=== PATIENT | male | born 2000 | race African-American/Black ===

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

== ENCOUNTER 2020-02-05 15:49 | Emergency (ER) | payer SELFPAY ==
[~2020-02-05] VITALS: Ht 180.3 cm; Wt 83.3 kg
[~2020-02-05 15:49] MED LIST changes: +VALA10007 PO
[2020-02-05] MEDS ORDERED: IBUP-1780 PO (16:33)
--- NOTE | 2020-02-05 16:33 | ED Upper Extremity ---
General Chief Complaint: Upper Extremity Stated Complaint: RT SHOULDER/COLLARBONE PAIN Source: patient History of Present Illness Date Seen by Provider: Feb 05, 2020 Time Seen by Provider: 16:20 Initial Comments Patient presents with right shoulder pain for the past 2 days. Seen in urgent care yesterday and had x-rays done, was given a sling and also an orthopedic follow-up which is scheduled for tomorrow. Presents today because of continued pain. Patient states he injured his shoulder 3 weeks ago when getting out of his car, he hit his right shoulder in the doorway while getting up. States he didn't villatoro ve any pain until 2 days ago. He was able to do normal daily activity including weight lifting and exercise without any limitation or pain. He denies any new injury or trauma that would have elicited the pain which began 2 days ago. Patient states he had shoulder surgery in 2018 of his right shoulder, he believes it was rotator cuff surgery although is not sure. Allergies and Home Medications Allergies Coded Allergies: No Known Drug Allergies (Unverified , 06/24/19) Home Medications Ibuprofen 800 Mg Tablet, 800 MG PO Q8H PRN for PAIN Prescribed by: DIANA WHEELER on 02/05/20 1633 Ondansetron 4 Mg Tab.rapdis, 4 MG PO Q6H PRN for NAUSEA/VOMITING Prescribed by: HOSSEIN MUHAMMAD on 06/24/19 1901 Valacyclovir HCl 1,000 Mg Tablet, 1,000 MG PO BID Prescribed by: MILKA ROME on 07/01/19 1735 Patient Home Medication List Home Medication List Reviewed: Yes Review of Systems Constitutional: no symptoms reported; No dizziness, No fever, No malaise Respiratory: No cough, No dyspnea on exertion Cardiovascular: No chest pain, No edema Musculoskeletal: joint pain (R shoulder only), muscle pain; No neck pain Past Gbrmzmh-Avumsw-Yexpow Hx Past Med/Social Hx: Reviewed Nursing Past Med/Soc Hx Patient Social History Drug of Choice: MARIJUANA 2nd Hand Smoke Exposure: No Recent Foreign Travel: No Contact w/Someone Who Travel: No Recent Hopitalizations: No Seasonal Allergies Seasonal Allergies: No Past Medical History Surgeries: Yes (RIGHT SHOULDER) Respiratory: Yes Asthma Cardiac: No Neurological: No Genitourinary: No Gastrointestinal: No Musculoskeletal: No Endocrine: No HEENT: No Cancer: No Psychosocial: No Integumentary: No Blood Disorders: No Physical Exam Vital Signs Capillary Refill : Height, Weight, BMI Height: '" Weight: lbs. oz. kg; 23.00 BMI Method: General Appearance: WD/WN, no apparent distress Neck: non-tender, full range of motion, supple Back: normal inspection, no CVA tenderness, no vertebral tenderness Shoulder: normal inspection, no evidence of injury; No asymmetry, No bone tenderness, No deformity, No ecchymosis; limited ROM (R shoulder limited flex, abduction 2 to pain), soft tissue tenderness; No swelling Elbow/Forearm: normal inspection, non-tender, no evidence of injury, normal ROM Wrist: Yes normal inspection, Yes non-tender, Yes no evidence of injury, Yes normal ROM Neurologic/Tendon: normal sensation, normal motor functions, normal tendon functions Skin: normal color, warm/dry Departure Impression Primary Impression: Shoulder pain, right Qualified Codes: M25.511 - Pain in right shoulder Disposition: 01 HOME, SELF-CARE Condition: Stable Departure-Patient Inst. Decision time for Depature: 16:31 Referrals: NO,LOCAL PHYSICIAN (PCP/Family) Primary Care Physician Patient Instructions: Shoulder Pain (DC) Add. Discharge Instructions: Keep your appointment to see Ortho here in [place] TOMORROW as previously scheduled. Ice your shoulder every 2 hours for 15 minutes. Avoid lifting and overhead activity. Wear a sling only for comfort. All discharge instructions reviewed with patient and/or family. Voiced understanding. Scripts Ibuprofen (Ibuprofen) 800 Mg Tablet 800 MG PO Q8H PRN for PAIN, #30 TAB 0 Refills Prov: DIANA WHEELER DO 02/05/20 DIANA WHEELER DO Feb 05, 2020 16:33
== END 2020-02-05 16:40 | disposition home or self-care (01) ==
LOC: EDUNIT# 15:49 → ER FS 15:51
DX: M25.511 Pain in right shoulder (principal); W22.8XXA Striking against or struck by other objects, initial encounter; Y92.810 Car as the place of occurrence of the external cause
CPT/HCPCS: 99282

== ENCOUNTER → 2020-02-06 | Outpatient (CLI) | payer SELFPAY ==
[~2020-02-06] MED LIST changes: +IBUP-1780 PO
--- NOTE | 2020-02-06 11:45 | Diagnostic Imaging Report ---
EXAMINATION: Right shoulder at 1054h. INDICATION: Shoulder pain 4 views were obtained. There are no prior studies available for comparison. There is no fracture, dislocation or acute bony abnormality evident. The glenohumeral and acromioclavicular joints are fairly well-maintained. There may be slight widening of the acromioclavicular joint however. If there is clinical concern regarding a mild acromioclavicular separation, then a comparison view of the left shoulder should be considered. The soft tissues are unremarkable. IMPRESSION: 1. There is no evidence for an acute bony abnormality. 2. The slight widening of the acromioclavicular joint may be a developmental variant. The possibility that there is a mild acromioclavicular separation should also be considered. Recommendations as above. Dictated by: Dictated on workstation # [id number]
== END ==
LOC: RAD FS 10:49
PROVIDERS: ATTEND Nurse Practitioner
DX: S40.011A Contusion of right shoulder, initial encounter (principal); X58.XXXA Exposure to other specified factors, initial encounter
CPT/HCPCS: 73030

== ENCOUNTER 2020-02-07 00:57 | Emergency (ER) | payer SELFPAY ==
[2020-02-07] MEDS ORDERED: HYDROcodone/APAP 5 MG/325 MG (LORTAB) TAB PO ONE (01:15)
--- NOTE | 2020-02-07 01:36 | ED Upper Extremity ---
General Chief Complaint: Upper Extremity Stated Complaint: RIGHT SHOULDER PAIN Nursing Triage Note: Pt complaining of right shoulder pain Source: patient History of Present Illness Date Seen by Provider: Feb 07, 2020 Time Seen by Provider: 01:15 Initial Comments Patient is a 19-year-old -[place] right-handed male presents with persistent right shoulder pain for the past 3 days after injuring his shoulder. Patient's been evaluated at an urgent care at this facility and by his sports medicine physician and diagnosed with a right before meals sprain. Patient is warned sling for the past 2 days but was instructed now migratory restring today. Reports increased right arm pain and swelling over the past 24 hours. Reports pain with right shoulder range of motion. He is been taking ibuprofen with limited relief. No other acute symptoms or complaints. Onset: other Pain/Injury Location: right shoulder Method of Injury: sports injury Modifying Factors: Improves With Other Allergies and Home Medications Allergies Coded Allergies: No Known Drug Allergies (Unverified , 06/24/19) Home Medications Ibuprofen 800 Mg Tablet, 800 MG PO Q8H PRN for PAIN Prescribed by: DIANA WHEELER on 02/05/20 1633 Patient Home Medication List Home Medication List Reviewed: Yes Review of Systems Constitutional: no symptoms reported EENTM: no symptoms reported Respiratory: no symptoms reported Cardiovascular: no symptoms reported Gastrointestinal: no symptoms reported Musculoskeletal: joint pain Past Piqlcyh-Svzcnx-Susfuz Hx Past Med/Social Hx: Reviewed Nursing Past Med/Soc Hx Patient Social History Alcohol Use: Denies Use Recreational Drug Use: Yes Drug of Choice: MARIJUANA 2nd Hand Smoke Exposure: No Recent Foreign Travel: No Contact w/Someone Who Travel: No Recent Infectious Disease Expo: No Recent Hopitalizations: No Physical Abuse: No Sexual Abuse: No Immunizations Up To Date Tetanus Booster (TDap): Unknown Seasonal Allergies Seasonal Allergies: No Past Medical History Surgeries: Yes (RIGHT SHOULDER "ROTATOR CUFF") Respiratory: Yes Asthma Cardiac: No Neurological: No Genitourinary: No Gastrointestinal: No Musculoskeletal: No Endocrine: No HEENT: No Cancer: No Psychosocial: No Integumentary: No Blood Disorders: No Physical Exam Vital Signs Vital Signs - First Documented 02/07/20 01:05 Temp 36.1 Pulse 88 Resp 16 B/P (MAP) 121/79 Pulse Ox 96 O2 Delivery Room Air Capillary Refill : Height, Weight, BMI Height: '" Weight: lbs. oz. kg; 25.00 BMI Method: General Appearance: WD/WN, no apparent distress, other HEENT: PERRL/EOMI, normal ENT inspection Neck: full range of motion Cardiovascular: regular rate, rhythm Respiratory: lungs clear Gastrointestinal: non tender, soft Back: normal inspection Shoulder: bone tenderness (R AC joing), limited ROM (R shoulder), pain, swelling (R arm edema, radial pulses 2 + and symmetric. No arm/forearm tenderness) Elbow/Forearm: normal inspection Wrist: Yes normal inspection Hand: normal inspection Neurologic/Tendon: normal sensation Neurologic/Psychiatric: no motor/sensory deficits Skin: normal color Progress/Results/Core Measures Results/Orders My Orders Orders - JUANCARLOS RUCKER DO Hydrocodone/Apap 5/325 Tablet (Lortab 5 (02/07/20 01:15) Medications Given in ED Current Medications Medications Dose Ordered Sig/Alon Route Start Time Stop Time Status Last Admin Dose Admin Acetaminophen/ Hydrocodone Bitart 2 tab ONCE ONCE PO 02/07/20 01:15 02/07/20 01:16 DC 02/07/20 01:17 2 TAB Vital Signs/I&O 02/07/20 01:05 Temp 36.1 Pulse 88 Resp 16 B/P (MAP) 121/79 Pulse Ox 96 O2 Delivery Room Air Departure Communication (Admissions) Persistent right shoulder pain from previous injury with new right arm swelling with dependent edema secondary to discontinuance arm sling and right arm use. Pain address. Will place and sling with instructions to follow up with sports medicine doctor in 3 days. Return precautions reviewed. Impression Primary Impression: Right shoulder injury Additional Impression: Dependent edema Disposition: HOME, SELF-CARE Condition: Stable Departure-Patient Inst. Referrals: NO,LOCAL PHYSICIAN (PCP/Family) Primary Care Physician Add. Discharge Instructions: Please continue Motrin for pain and wear a right arm sling. Follow-up with your team physician later today or on Monday. All discharge instructions reviewed with patient and/or family. Voiced understanding. JUANCARLOS RUCKER DO Feb 07, 2020 01:36
== END 2020-02-07 01:45 | disposition home or self-care (01) ==
LOC: EDUNIT# 00:57 → ER FS 01:01
DX: S49.81XA Other specified injuries of right shoulder and upper arm, initial encounter (principal); R60.9 Edema, unspecified; Y93.79 Activity, other specified sports and athletics
CPT/HCPCS: 99282; A4565

== ENCOUNTER 2020-02-19 04:16 | Emergency (ER) | payer MEDICAID, OTHER ==
[~2020-02-19] VITALS: Ht 177.8 cm; Wt 79.4 kg
[2020-02-19] MEDS ORDERED: RT-ALBUTEROL/IPRATROPIUM 3 ML (DUONEB) VIAL ONE (04:18)
[2020-02-19] MEDS ORDERED: NS IV 1000 ML 1,000 ML IV SCH ×2 (04:45→05:15)
[2020-02-19] MEDS ORDERED: methylPREDNISolone 125 MG (Solu-MEDROL) VIAL IVP ONE (04:45)
[2020-02-19] MEDS ORDERED: TERBUTALINE INJ 1 MG/ML (BRETHINE) AMP SC ONE (04:45)
--- NOTE | 2020-02-19 04:45 | ED Respiratory ---
General Chief Complaint: Respiratory Problems Stated Complaint: SOB Nursing Triage Note: pt with hx of asthma, co of soa, has used inhaler x 3 this am, states occasional cough with yellow sputum Source: patient Exam Limitations: no limitations (FRED CHRISTIE DO) History of Present Illness Date Seen by Provider: Feb 19, 2020 Time Seen by Provider: 04:25 Initial Comments The patient is a pleasant 19-year-old male who presents for evaluation of shortness of breath and wheezing which started early this morning. He reports a history of asthma and states that this feels like an asthma exacerbation. He says that he has had an occasional cough with some yellow sputum. He denies fevers or chills, loss of taste or smell, chest pain, hemoptysis, diarrhea, diaphoresis, palpitations dizziness or syncope. He states that he uses an inhaler a few times this morning and it helped slightly. He reports previous admission for asthma when he was younger but nothing recently. Timing/Duration: this morning Severity: moderate Modifying Factors: Improves With Albuterol Inhaler (helped slightly), Improves With Rest (helps) Associated Symptoms: cough, shortness of breath, wheezing (FRED CHRISTIE DO) Allergies and Home Medications Allergies Coded Allergies: No Known Drug Allergies (Unverified , 06/24/19) Home Medications Ibuprofen 800 Mg Tablet, 800 MG PO Q8H PRN for PAIN Prescribed by: DIANA WHEELER on 02/05/20 5373 Patient Home Medication List Home Medication List Reviewed: Yes (FRED CHRISTIE DO) Review of Systems Review of Systems Constitutional: no symptoms reported EENTM: no symptoms reported Respiratory: cough, short of breath, wheezing Cardiovascular: no symptoms reported Gastrointestinal: no symptoms reported Genitourinary: no symptoms reported Musculoskeletal: no symptoms reported Skin: no symptoms reported Psychiatric/Neurological: No Symptoms Reported Hematologic/Lymphatic: No Symptoms Reported Immunological/Allergic: no symptoms reported (FRED CHRISTIE DO) All Other Systems Reviewed Negative Unless Noted: Yes (FRED CHRISTIE DO) Past Zjadyoc-Aihjxo-Wbvhdk Hx Past Med/Social Hx: Reviewed Nursing Past Med/Soc Hx (FRED CHRISTIE DO) Patient Social History Alcohol Use: Denies Use Recreational Drug Use: Yes Drug of Choice: MARIJUANA Smoking Status: Never a Smoker 2nd Hand Smoke Exposure: No Recent Foreign Travel: No Contact w/Someone Who Travel: No Recent Infectious Disease Expo: No Recent Hopitalizations: No Ebola Symptoms: Denies Symptoms Listed Physical Abuse: No Sexual Abuse: No Mistreated: No Fear: No (FRED CHRISTIE DO) Immunizations Up To Date Tetanus Booster (TDap): Unknown (FRED CHRISTIE DO) Seasonal Allergies Seasonal Allergies: No (FRED CHRISTIE DO) Past Medical History Surgeries: Yes (RIGHT SHOULDER "ROTATOR CUFF") Respiratory: Yes Asthma Cardiac: No Neurological: No Genitourinary: No Gastrointestinal: No Musculoskeletal: No Endocrine: No HEENT: No Cancer: No Psychosocial: No Integumentary: No Blood Disorders: No (FRED CHRISTIE DO) Physical Exam Vital Signs - First Documented 02/19/20 02/19/20 04:28 05:00 Temp 35.9 Pulse 100 Resp 32 B/P (MAP) 156/109 Pulse Ox 94 O2 Delivery Room Air (HOSSEIN HILLIARD DO) Capillary Refill : (FRED CHRISTIE DO) Height: '" Weight: lbs. oz. kg; 25.00 BMI Method: General Appearance: WD/WN, no apparent distress Eyes: Bilateral Eye Normal Inspection, Bilateral Eye PERRL, Bilateral Eye EOMI HEENT: PERRL/EOMI, pharynx normal Neck: non-tender, full range of motion, supple Respiratory: lungs clear, normal breath sounds, no respiratory distress, no accessory muscle use Cardiovascular: regular rate, rhythm, no edema, no JVD Gastrointestinal: normal bowel sounds, non tender, soft, no pulsatile mass Extremities: non-tender, no pedal edema Neurologic/Psychiatric: director of clinical services II-XII nml as tested, no motor/sensory deficits, alert, normal mood/affect, oriented x 3 Skin: normal color, warm/dry (FRED CHRISTIE DO) Progress/Results/Core Measures Suspected Sepsis SIRS Temperature: Pulse: Respiratory Rate: Blood Pressure / Mean: (FRED CHRISTIE DO) Results/Orders Medications Given in ED Current Medications Medications Dose Ordered Sig/Alon Route Start Time Stop Time Status Last Admin Dose Admin Albuterol/ Ipratropium 3 ml ONCE ONCE INH 02/19/20 05:00 02/19/20 05:01 DC 02/19/20 04:51 3 ML Albuterol/ Ipratropium 3 ml STK-MED ONCE .ROUTE 02/19/20 04:18 02/19/20 04:25 DC 02/19/20 04:26 3 ML Methylprednisolone Sodium Succinate 125 mg ONCE ONCE IVP 02/19/20 04:45 02/19/20 04:46 DC 02/19/20 04:48 125 MG Terbutaline Sulfate 0.25 mg ONCE ONCE SC 02/19/20 04:45 02/19/20 04:46 DC 02/19/20 04:48 0.25 MG (HOSSEIN HILLIARD DO) Vital Signs/I&O 02/19/20 02/19/20 02/19/20 04:28 05:00 06:00 Temp 35.9 Pulse 100 110 99 Resp 32 18 20 B/P (MAP) 156/109 157/91 (113) 138/80 (99) Pulse Ox 94 92 O2 Delivery Room Air Room Air Room Air (HOSSEIN HILLIARD DO) Vital Signs/I&O Capillary Refill : (FRED CHRISTIE DO) Progress Note : Progress Note @0500 - Pt still feeling quite short of breath. @0530 - Pt states he is starting to feel much better. Oxygen still fluctuating between 89-94%. Additional neb ordered. @0540 - Pt saturating 99% on breathing treatment, HR now under 100. @0600 - Pt care transferred to Dr. Hilliard at this time. Awaiting response to treatment. (FRED CHRISTIE DO) Progress Note : Time: 07:28 Progress Note 0730 patient reports he is now feeling seemingly better. His pulse ox is maintaining approximately 95-96. I will discharge him home with a prescription of 3 days of steroids. Return precautions were discussed. Patient is stable and is asking to go home. (HOSSEIN HILLIARD DO) Departure Impression Primary Impression: Acute asthma exacerbation Qualified Codes: J45.21 - Mild intermittent asthma with (acute) exacerbation Disposition: 01 HOME, SELF-CARE Condition: Stable Departure-Patient Inst. Referrals: NO,LOCAL PHYSICIAN (PCP) Primary Care Physician [facility] Patient Instructions: Asthma, Adult (DC) Add. Discharge Instructions: Take the prescribed medications as directed. Return to the emergency Department immediately for difficulty breathing, new or worsening symptoms. Follow-up with your doctor in the next 1-2 days. Take your home breathing treatments as directed, as needed. Scripts Prednisone (Prednisone) 20 Mg Tab 40 MG PO DAILY, #6 TAB 0 Refills Prov: HOSSEIN HILLIARD DO 02/19/20 FRED CHRISTIE DO Feb 19, 2020 04:45 HOSSEIN HILLIARD DO Feb 19, 2020 07:30
[2020-02-19] MEDS: MAGNESIUM 1 GM/100 ML IVPB 100 ML IV SCH ×2 (04:48→05:29)
[2020-02-19 05:00] VITALS: BP 157/91
[2020-02-19] MEDS ORDERED: RT-ALBUTEROL/IPRATROPIUM 3 ML (DUONEB) VIAL INH ONE ×2 (05:00→05:30)
[2020-02-19] MEDS ORDERED: RT-ALBUTEROL SULF 2.5 MG/3 ML PRE-MIX VIAL ONE (05:31)
[2020-02-19] MEDS ORDERED: RT-ALBUTEROL SULF 2.5 MG/3 ML PRE-MIX VIAL IH STA (05:37)
[2020-02-19] MEDS ORDERED: RT-ALBUTEROL SULF 2.5 MG/3 ML PRE-MIX VIAL INH ONE (05:45)
[2020-02-19 06:00] VITALS: BP 138/80
--- NOTE | 2020-02-19 06:50 | Diagnostic Imaging Report ---
INDICATION: Asthma. Shortness of breath with cough. FINDINGS: Portable chest. There is mild hyperaeration of the lungs. There are no acute infiltrates or segmental atelectasis. The heart is not enlarged. No pulmonary edema. No pneumothorax or pleural effusion. No bony abnormalities. IMPRESSION: Mild bilateral air trapping. No infiltrates. Dictated by: Dictated on workstation # [id number]
[2020-02-19] MEDS ORDERED: PRD20T PO (07:30)
== END 2020-02-19 07:32 | disposition home or self-care (01) ==
LOC: EDUNIT# 04:16 → ER FS 04:18
DX: J45.901 Unspecified asthma with (acute) exacerbation (principal)
CPT/HCPCS: 71045

== ENCOUNTER 2020-02-19 21:05 | Observation (INO) | payer MEDICAID, OTHER ==
[~2020-02-19] VITALS: Ht 177.8 cm; Wt 76.3 kg
[~2020-02-19 21:05] MED LIST changes: +PRD20T PO
[2020-02-19] MEDS ORDERED: RT-epiNEPHrine (RACEMIC) 2.25% 0.5 ML VIAL ONE (21:06)
[2020-02-19] MEDS ORDERED: RT-SODIUM CHL INHALATION 3 ML VIAL ONE (21:06)
--- NOTE | 2020-02-19 21:14 | ED Dyspnea ---
General Stated Complaint: CHEST PAIN,SOA History of Present Illness Date Seen by Provider: Feb 19, 2020 Time Seen by Provider: 21:11 Initial Comments 19-year-old male presents with some wheezing and shortness of breath. Patient was seen in this ER this morning who is having an asthma exacerbation. Patient was given a couple DuoNeb's, albuterol, magnesium, terbutaline and Solu-Medrol. Patient's symptoms improved and he has some better. Reports that this afternoon the symptoms worsed again these having some increased shortness of breath and wheezing. He has no reports of fevers or chills. Allergies and Home Medications Allergies Coded Allergies: No Known Drug Allergies (Unverified , 06/24/19) Home Medications Ibuprofen 800 Mg Tablet, 800 MG PO Q8H PRN for PAIN Prescribed by: DIANA WHEELER on 02/05/20 1633 Prednisone 20 Mg Tab, 40 MG PO DAILY Prescribed by: HOSSEIN MUHAMMAD on 02/19/20 0730 Patient Home Medication List Home Medication List Reviewed: Yes Review of Systems Review of Systems Constitutional: No chills, No fever Respiratory: short of breath, wheezing Cardiovascular: chest pain Gastrointestinal: no symptoms reported Musculoskeletal: no symptoms reported Skin: no symptoms reported Psychiatric/Neurological: No Symptoms Reported Endocrine: No Symptoms Reported Hematologic/Lymphatic: No Symptoms Reported Past Svrteqw-Cposfy-Chhqfv Hx Past Med/Social Hx: Reviewed Nursing Past Med/Soc Hx Patient Social History Drug of Choice: MARIJUANA 2nd Hand Smoke Exposure: No Recent Foreign Travel: No Contact w/Someone Who Travel: No Recent Hopitalizations: No Immunizations Up To Date Tetanus Booster (TDap): Unknown Seasonal Allergies Seasonal Allergies: No Past Medical History Surgeries: Yes (RIGHT SHOULDER "ROTATOR CUFF") Respiratory: Yes Asthma Cardiac: No Neurological: No Genitourinary: No Gastrointestinal: No Musculoskeletal: No Endocrine: No HEENT: No Cancer: No Psychosocial: No Integumentary: No Blood Disorders: No Physical Exam Vital Signs Vital Signs - First Documented 02/19/20 21:19 Temp 35.3 Pulse 88 Resp 28 B/P (MAP) 126/95 O2 Delivery Room Air Capillary Refill : Height, Weight, BMI Height: '" Weight: lbs. oz. kg; 25.00 BMI Method: General Appearance: Mild Distress Respiratory: Decreased Breath Sounds, Wheezing Cardiovascular: Regular Rate, Rhythm, Normal Peripheral Pulses Gastrointestinal: Non Tender Extremity: Normal Capillary Refill, Normal Inspection, Normal Range of Motion Neurologic/Psychiatric: Alert, Oriented x3, Normal Mood/Affect, market specialist II-XII Norm as Tested Skin: Normal Color, Warm/Dry Progress/Results/Core Measures Results/Orders My Orders Orders - HOSSEIN MUHAMMAD DO Rt Epinephrine (Racemic Epinephrine 2.25 (02/19/20 21:15) Hypertonic Saline 3% Neb (Rt-Hypertonic (02/19/20 21:15) Svn Small Volume Nebulizer (02/19/20 21:09) Sodium Chl Inhalation (Rt-Sodium Chl Inh (02/19/20 21:06) Rt Epinephrine (Racemic Epinephrine 2.25 (02/19/20 21:06) Medications Given in ED Current Medications Medications Dose Ordered Sig/Alon Route Start Time Stop Time Status Last Admin Dose Admin Epinephrine 0.5 ml ONCE ONCE INH 02/19/20 21:15 02/19/20 21:16 DC 02/19/20 21:14 0.5 ML Sodium Chloride 3 ml STK-MED ONCE .ROUTE 02/19/20 21:06 02/19/20 21:12 DC 02/19/20 21:18 3 ML Sodium Chloride Hypertonic 15 ml ONCE ONCE IH 02/19/20 21:15 02/19/20 21:16 DC 02/19/20 21:17 15 ML Vital Signs/I&O 02/19/20 21:19 Temp 35.3 Pulse 88 Resp 28 B/P (MAP) 126/95 O2 Delivery Room Air Departure Communication (Admissions) Time/Spoke to Admitting Phy: 21:35 Okay to admit, Solu-Medrol 60 mg IV every 6 hours, albuterol nebulizer every 2 hours when necessary, DuoNeb nebulizer every 4 Impression Primary Impression: Acute asthma exacerbation Qualified Codes: J45.41 - Moderate persistent asthma with (acute) exacerbation Disposition: ADMITTED INPATIENT Condition: Improved Admissions Decision to Admit Reason: Admit from ER (General) Decision to Admit/Date: Feb 19, 2020 Time/Decision to Admit Time: 21:37 Departure-Patient Inst. Referrals: NO,LOCAL PHYSICIAN (PCP/Family) Primary Care Physician HOSSEIN MUHAMMAD DO Feb 19, 2020 21:14
[2020-02-19] MEDS ORDERED: RT-epiNEPHrine (RACEMIC) 2.25% 0.5 ML VIAL INH ONE (21:15)
[2020-02-19] MEDS ORDERED: RT-HYPERTONIC SALINE 3% 4 ML NEB IH ONE (21:15)
[2020-02-19] MEDS ORDERED: methylPREDNISolone 125 MG (Solu-MEDROL) VIAL IV STA (21:30)
[2020-02-19] MEDS ORDERED: RT-ALBUTEROL/IPRATROPIUM 3 ML (DUONEB) VIAL INH ONE (21:30)
[2020-02-19 21:45] VITALS: BP 125/69
--- NOTE | 2020-02-19 23:00 | NUR ---
KARENA YUAN admitted to room 419-1, with an admitting diagnosis of Asthma Exacerbation, on 02/19/20 from [place] ED via EMS stretcher, accompanied by staff.KARENA YUAN introduced to surroundings, call light, bed controls, phone, TV, temperature control, lights, meal times, smoking policy, visitor policy, side rail policy, bathrooms and showers. Patient Rights given to patient in the handbook. KARENA YUAN verbalizes understanding that [facility] is not responsible for the loss or damage to any personal effects or valuables that are kept in the patients posession during their hospitalization.
[2020-02-19] MEDS ORDERED: CATHETER FLUSH 10 ML SYR IV PRN (23:45)
[2020-02-19] MEDS ORDERED: RT-ALBUTEROL SULF 2.5 MG/3 ML PRE-MIX VIAL IH PRN (23:45)
[2020-02-19] MEDS: methylPREDNISolone 125 MG (Solu-MEDROL) VIAL IVP SCH (23:51)
[2020-02-20] VITALS (7 sets, daily range): BP systolic 117–151; BP diastolic 71–95
[2020-02-20] MEDS: RT-ALBUTEROL/IPRATROPIUM 3 ML (DUONEB) VIAL IH SCH ×6 (03:10→22:48)
[2020-02-20] MEDS ORDERED: PIPERACILLIN/TAZO 4.5 GM/NS 100 ML IV SCH ×2 (05:30)
[2020-02-20] MEDS: methylPREDNISolone 125 MG (Solu-MEDROL) VIAL IVP SCH ×3 (05:46→17:32)
[2020-02-20] MEDS ORDERED: RT-ALBUTEROL SULF 2.5 MG/3 ML PRE-MIX VIAL INH SCH (08:00)
[2020-02-20] MEDS ORDERED: LORATADINE (CLARITIN) 10 MG TAB PO ONE (11:00)
[2020-02-20] MEDS ORDERED: MONTELUKAST 10 MG (SINGULAIR) TAB PO ONE (11:00)
[2020-02-20 11:29] LABS: BASOPHILS % (AUTO) 0 % (0-10); EOSINOPHILS % (AUTO) 0 % (0-10); HEMATOCRIT 49 % (40-54); HEMOGLOBIN 16.6 g/dL (13.3-17.7); LYMPHOCYTES # (AUTO) 0.8 10^3/uL (1.0-4.0); LYMPHOCYTES % (AUTO) 5 % (12-44); MEAN CORPUSCULAR HEMOGLOBIN 29 pg (25-34); MEAN CORPUSCULAR HGB CONC 34 g/dL (32-36); MEAN CORPUSCULAR VOLUME 86 fL (80-99); MEAN PLATELET VOLUME 9.7 fL (9.0-12.2); MONOCYTES # (AUTO) 0.2 10^3/uL (0.0-1.0); MONOCYTES % (AUTO) 1 % (0-12); NEUTROPHILS # (AUTO) 15.1 10^3/uL (1.8-7.8); NEUTROPHILS % (AUTO) 94 % (42-75); PLATELET COUNT 249 10^3/uL (130-400); WHITE BLOOD COUNT 16.2 10^3/uL (4.3-11.0)
[2020-02-20 11:40] LABS: ALBUMIN 4.9 GM/DL (3.2-4.5)
[2020-02-20 11:41] LABS: CHLORIDE 104 MMOL/L (98-107); POTASSIUM 3.8 MMOL/L (3.6-5.0); SODIUM 139 MMOL/L (135-145)
[2020-02-20 11:42] LABS: CALCIUM 9.7 MG/DL (8.5-10.1)
[2020-02-20 11:43] LABS: GLUCOSE 146 MG/DL (70-105); TOTAL PROTEIN 8.1 GM/DL (6.4-8.2)
[2020-02-20 11:44] LABS: BAND NEUTROPHILS 1 %; CARBON DIOXIDE 23 MMOL/L (21-32); LYMPHOCYTES % (MANUAL) 5 %; MONOCYTES % (MANUAL) 3 %; NEUTROPHILS % (MANUAL) 91 %; RBC MORPH NORMAL
[2020-02-20 11:45] LABS: BILIRUBIN,TOTAL 0.8 MG/DL (0.1-1.0)
[2020-02-20 11:46] LABS: ALKALINE PHOSPHATASE 96 U/L (40-136)
[2020-02-20 11:47] LABS: CREATININE SERUM 1.29 MG/DL (0.60-1.30); GFR ESTIMATED > 60
[2020-02-20 11:48] LABS: BUN/CREATININE RATIO 8
[2020-02-20 11:50] LABS: ALANINE AMINOTRANSFERASE 28 U/L (0-55)
[2020-02-20] MEDS: NS IV 1000 ML 1,000 ML IV SCH (12:58)
--- NOTE | 2020-02-20 13:34 | History & Physical-Hospitalist ---
MIRNA HILLMAN MED STUDENT 02/20/20 1334: History of Present Illness HPI/Chief Complaint CC: asthma exacerbation HPI: This is a 19 YO male with history of asthma who presented to [place] ER yesterday morning for wheezing, SOB, and mild cough. Pt thought these symptoms were consistent with an asthma exacerbation. Denied loss of taste/smell, fever, chills, or diaphoresis. Pt was treated with DuoNeb, Solu-Medrol, and Terbutaline and felt improved, so he was discharged home with Rx for steroids. However, pt returned to the [place] ER later that evening for return of symptoms and was admitted to [facility]. CXR in the ER showed bilateral air trapping but no infiltrates. This morning, pt states he feels about the same as yesterday, but has some improvement after a breathing treatment this morning. Notes an occasional cough, but says he has not coughed anything up. States he was admitted for asthma once when he was younger. Date Seen 02/20/20 Time Seen by a Provider: 09:15 Attending Physician Jason Levy MD PCP No,Local Physician Referring Physician Date of Admission Feb 19, 2020 at 23:00 Home Medications & Allergies Home Medications Reviewed patient Home Medication Reconciliation performed by pharmacy medication reconciliations alternative energy technician and/or nursing. Patients Allergies have been reviewed. Allergies Allergies Coded Allergies No Known Drug Allergies (Unverified06/24/19) Past Bjgapls-Rnygrc-Xhjhyw Hx Past Med/Social Hx: Reviewed Nursing Past Med/Soc Hx Patient Social History Alcohol Use: Denies Use Recreational Drug Use: Yes Drug of Choice: MARIJUANA Smoking Status: Never a Smoker 2nd Hand Smoke Exposure: No Recent Foreign Travel: No Contact w/other who traveled: No Recent Hopitalizations: No Recent Infectious Disease Expo: No Immunizations Up To Date Tetanus Booster (TDap): Unknown Seasonal Allergies Seasonal Allergies: No Past Medical History History of Blood Disorders: No Review of Systems Constitutional: No chills, No fever EENTM: No blurred vision, No double vision Respiratory: short of breath, wheezing Cardiovascular: No chest pain, No syncope Gastrointestinal: No abdominal pain, No diarrhea Genitourinary: No dysuria, No frequency Musculoskeletal: No back pain, No joint pain Skin: No change in color, No change in hair/nails Psychiatric/Neurological: Denies Anxiety, Denies Depressed All Other Systems Reviewed Negative Unless Noted: Yes Physical Exam Physical Exam Vital Signs Vital Signs - First Documented 02/19/20 02/19/20 02/19/20 02/20/20 21:19 21:45 23:00 00:51 Temp 35.3 Pulse 88 Resp 28 B/P (MAP) 126/95 Pulse Ox 95 O2 Delivery Room Air O2 Flow Rate 4.00 FiO2 21 Capillary Refill : Less Than 3 Seconds Height, Weight, BMI Height: '" Weight: lbs. oz. kg; 20.00 BMI Method: General Appearance: No Apparent Distress, WD/WN Eyes: Bilateral Eye Normal Inspection, Bilateral Eye EOMI HEENT: PERRL/EOMI, Normal ENT Inspection Neck: Normal Inspection, Supple Respiratory: No Respiratory Distress, Wheezing (bilateral expiratory) Cardiovascular: Regular Rate, Rhythm, No Murmur Gastrointestinal: No Non Tender, No Distended Extremity: Normal Capillary Refill, Normal Inspection Neurologic/Psychiatric: Alert, Oriented x3, No Motor/Sensory Deficits, Normal Mood/Affect Skin: Normal Color, Other (mild amount of sweat, pt in bed with multiple blankets and wearing a sweatshirt) Lymphatic: No Adenopathy Results Results/Procedures Labs Laboratory Tests 02/20/20 11:20 Patient resulted labs reviewed. Imaging: Reviewed Imaging Report Assessment/Plan Admission Diagnosis asthma exacerbation Assessment and Plan asthma exacerbation mild hypoxia at 90% RA breathing treatments with DuoNeb, Proventil, and Advair as needed IV steroids PO Singulair and Claritin follow labs Clinical Quality Measures DVT/VTE Risk/Contraindication: RFS Level Per Nursing on Admit: 0=No Risk/No VTE PPX SALINA WELLER DO 02/20/20 2242: Past Astcguh-Zwcslg-Uwmocg Hx Past Med/Social Hx: Reviewed Nursing Past Med/Soc Hx, Reviewed and Corrections made Patient Social History Marrital Status: single Employed/Student: student, full-time Alcohol Use: Denies Use Smoking Status: Never a Smoker Review of Systems Respiratory: dyspnea on exertion, short of breath, wheezing Physical Exam Physical Exam Respiratory: Accessory Muscle Use, Decreased Breath Sounds, Wheezing (bilateral expiratory) Assessment/Plan Admission Diagnosis Status asthmaticus Lactic acidosis Admission Status: Observation Diagnosis/Problems Diagnosis/Problems (1) Acute asthma exacerbation Status: Acute Qualifiers: Asthma severity: moderate Asthma persistence: persistent Qualified Codes: J45.41 - Moderate persistent asthma with (acute) exacerbation Supervisory-Addendum Brief Verification & Attestation Participated in pt care: history, MDM, physical Personally performed: exam, history, MDM, supervision of care Care discussed with: Medical Student Procedures: n/a Results interpretation: Verified all documentation Verification and Attestation of Medical Student E/M Service A medical student performed and documented this service in my presence. I reviewed and verified all information documented by the medical student and made modifications to such information, when appropriate. I personally performed the physical exam and medical decision making. Salina Weller, Feb 20, 2020,22:43 MIRNA HILLMAN MED STUDENT Feb 20, 2020 13:34 SALINA WELLER DO Feb 20, 2020 22:42
--- NOTE | 2020-02-20 17:18 | NUR ---
REPEAT LACTIC ASID 2.[address] WELLER, ORDERED TO DO ABG'S
[2020-02-20 18:14] LABS: ABG BASE EXCESS 0.3 MMOL/L (-2.5-2.5); ABG OXYGEN SATURATION 91 % (94-100); ABG PCO2 36 MMHG (35-45); ABG PH 7.43 (7.37-7.43); ABG PO2 58 MMHG (79-93); ABG TCO2 25.2 MMOL/L (21.0-31.0)
[2020-02-20 18:15] LABS: INSPIRED O2 RA; PATIENT TEMP 36.6; VENTILATOR NO
[2020-02-20] MEDS: ADVAIR HFA 115/21 MCG INHALER 8 GM IH SCH (18:45)
--- NOTE | 2020-02-20 20:47 | NUR ---
Contacted by Yoselin in lab that the patients lactic acid is 3.1. Dr. Cleary notified and requested to stop checking it.
[2020-02-20] MEDS: MONTELUKAST 10 MG (SINGULAIR) TAB PO SCH (21:51)
[2020-02-20] MEDS ORDERED: PIPERACILLIN/TAZOBACTAM (BULK) 4.5 GM in NS (IVPB) 100 ML IV ONE (23:30)
[2020-02-20] MEDS ORDERED: PIPERACILLIN/TAZO 4.5 GM VIAL (ZOSYN) IV ONE (23:47)
[2020-02-20] MEDS ORDERED: NS (IVPB) 100 ML ONE (23:49)
[2020-02-21] VITALS: BP 126/70
[2020-02-21] MEDS: AZITHROMYCIN INJECTION 500 MG in NS (IVPB) 250 ML IV SCH ×2 (00:20→10:16)
[2020-02-21] MEDS: methylPREDNISolone 125 MG (Solu-MEDROL) VIAL IVP SCH ×4 (00:22→18:02)
[2020-02-21] MEDS: NS IV 1000 ML 1,000 ML IV SCH (01:45)
[2020-02-21] MEDS: RT-ALBUTEROL/IPRATROPIUM 3 ML (DUONEB) VIAL IH SCH ×2 (01:49→09:26)
[2020-02-21 04:00] VITALS: BP 142/71
[2020-02-21 04:41] LABS: BASOPHILS % (AUTO) 0 % (0-10); EOSINOPHILS % (AUTO) 0 % (0-10); HEMATOCRIT 44 % (40-54); HEMOGLOBIN 14.6 g/dL (13.3-17.7); LYMPHOCYTES # (AUTO) 0.8 10^3/uL (1.0-4.0); LYMPHOCYTES % (AUTO) 4 % (12-44); MEAN CORPUSCULAR HEMOGLOBIN 29 pg (25-34); MEAN CORPUSCULAR HGB CONC 33 g/dL (32-36); MEAN CORPUSCULAR VOLUME 88 fL (80-99); MEAN PLATELET VOLUME 9.9 fL (9.0-12.2); MONOCYTES # (AUTO) 0.5 10^3/uL (0.0-1.0); MONOCYTES % (AUTO) 3 % (0-12); NEUTROPHILS # (AUTO) 17.3 10^3/uL (1.8-7.8); NEUTROPHILS % (AUTO) 93 % (42-75); PLATELET COUNT 225 10^3/uL (130-400); WHITE BLOOD COUNT 18.7 10^3/uL (4.3-11.0)
[2020-02-21 04:58] LABS: ALBUMIN 4.1 GM/DL (3.2-4.5)
[2020-02-21 04:59] LABS: CHLORIDE 106 MMOL/L (98-107); POTASSIUM 4.2 MMOL/L (3.6-5.0); SODIUM 138 MMOL/L (135-145)
[2020-02-21 05:01] LABS: GLUCOSE 141 MG/DL (70-105); TOTAL PROTEIN 6.7 GM/DL (6.4-8.2)
[2020-02-21 05:02] LABS: CARBON DIOXIDE 21 MMOL/L (21-32)
[2020-02-21 05:03] LABS: BILIRUBIN,TOTAL 0.8 MG/DL (0.1-1.0)
[2020-02-21 05:05] LABS: ALKALINE PHOSPHATASE 74 U/L (40-136); CREATININE SERUM 1.24 MG/DL (0.60-1.30); GFR ESTIMATED > 60
[2020-02-21 05:06] LABS: BUN/CREATININE RATIO 10
[2020-02-21 05:08] LABS: ALANINE AMINOTRANSFERASE 21 U/L (0-55)
[2020-02-21 07:30] VITALS: BP 129/74
[2020-02-21] MEDS: LORATADINE (CLARITIN) 10 MG TAB PO SCH (08:49)
[2020-02-21] MEDS ORDERED: PRD20T PO (11:21)
--- NOTE | 2020-02-21 11:22 | NUR ---
SPOKE WITH THE PT (I CALLED HER ROOM PHONE) AND CALLED [facility] TO COMPLETE THE MED REC PREDNISONE 20MG FILLED 02-19-2020 #6/3DS OTC MEDS: NONE
[2020-02-21] MEDS: ADVAIR HFA 115/21 MCG INHALER 8 GM IH SCH ×2 (11:26→19:04)
[2020-02-21] MEDS: PIPERACILLIN/TAZO 4.5 GM/NS 100 ML IV SCH ×4 (11:27→18:02)
--- NOTE | 2020-02-21 11:57 | Progress Note - Hospitalist ---
Subjective HPI/CC On Admission Date Seen by Provider: Feb 21, 2020 Time Seen by Provider: 11:00 CC: asthma exacerbation HPI: This is a 19 YO male with history of asthma who presented to [facility] ER yesterday morning for wheezing, SOB, and mild cough. Pt thought these symptoms were consistent with an asthma exacerbation. Denied loss of taste/smell, fever, chills, or diaphoresis. Pt was treated with DuoNeb, Solu-Medrol, and Terbutaline and felt improved, so he was discharged home with Rx for steroids. However, pt returned to the [facility] ER later that evening for return of symptoms and was admitted to [facility]. CXR in the ER showed bilateral air trapping but no infiltrates. This morning, pt states he feels about the same as yesterday, but has some improvement after a breathing treatment this morning. Notes an oc casional cough, but says he has not coughed anything up. States he was admitted for asthma once when he was younger. Subjective/Events-last exam Upon reviewing results last evening I placed him in isolation and swabbed him for COVID Patient doing much better Less wheezing Abx maintained and will transition to pills tomorrow at [place] CXR clear Labs stable but wbc elevated from steroids Review of Systems Pulmonary: Dyspnea Focused Exam Lactate Level 02/20/20 22:13: Lactic Acid Level 3.01*H 02/21/20 01:10: Lactic Acid Level 2.13*H 02/21/20 04:26: Lactic Acid Level 1.97 Objective Exam Vital Signs Vital Signs Date Time Temp Pulse Resp B/P (MAP) Pulse Ox O2 Delivery O2 Flow Rate FiO2 02/22/20 03:14 94 Room Air 02/22/20 00:00 36.6 60 19 128/70 (89) 02/21/20 19:59 1.00 02/20/20 00:51 21 Capillary Refill : Less Than 3 Seconds General Appearance: No Apparent Distress, WD/WN Respiratory: Crackles, Decreased Breath Sounds, Wheezing Cardiovascular: Regular Rate, Rhythm, No Edema, No Gallop, No JVD, No Murmur, Normal Peripheral Pulses Neurologic/Psychiatric: Alert, Oriented x3, No Motor/Sensory Deficits, Normal Mood/Affect Results/Procedures Lab Patient resulted labs reviewed. Imaging: Reviewed Imaging Report Assessment/Plan Assessment and Plan Assess & Plan/Chief Complaint Assessment; Status asthmaticus Swabbed for COVID Elevated lactic acid Hypoxemia on ABG Plan: IV steroids and abx HLIVF Monitor closely Diagnosis/Problems Diagnosis/Problems (1) Acute asthma exacerbation Status: Acute Qualifiers: Asthma severity: moderate Asthma persistence: persistent Qualified Codes: J45.41 - Moderate persistent asthma with (acute) exacerbation Clinical Quality Measures DVT/VTE Risk/Contraindication: RFS Level Per Nursing on Admit: 0=No Risk/No VTE PPX JAYDEN WELLER DO Feb 21, 2020 11:57
[2020-02-21] MEDS ORDERED: ALBUTEROL/IPRATROP (COMBIVENT RESPIMAT) 4 GM INHALER IH SCH (13:00)
[2020-02-21] MEDS: ALBUTEROL/IPRATROP (COMBIVENT RESPIMAT) 4 GM INHALER IH SCH ×3 (15:27→19:04)
[2020-02-21 16:14] VITALS: BP 145/81
--- NOTE | 2020-02-21 16:58 | NUR ---
Telephone orders received from Dr. Cleary to remove patient from isolation.
[2020-02-21] MEDS: MONTELUKAST 10 MG (SINGULAIR) TAB PO SCH (19:30)
[2020-02-22] VITALS: BP 128/70
[2020-02-22] MEDS: methylPREDNISolone 125 MG (Solu-MEDROL) VIAL IVP SCH ×3 (00:13→11:59)
[2020-02-22] MEDS: PIPERACILLIN/TAZO 4.5 GM/NS 100 ML IV SCH ×4 (03:12→11:05)
[2020-02-22] MEDS: ALBUTEROL/IPRATROP (COMBIVENT RESPIMAT) 4 GM INHALER IH SCH ×3 (03:14→14:50)
[2020-02-22 07:06] LABS: BASOPHILS % (AUTO) 0 % (0-10); EOSINOPHILS % (AUTO) 0 % (0-10); HEMATOCRIT 49 % (40-54); HEMOGLOBIN 16.3 g/dL (13.3-17.7); LYMPHOCYTES # (AUTO) 1.2 10^3/uL (1.0-4.0); LYMPHOCYTES % (AUTO) 6 % (12-44); MEAN CORPUSCULAR HEMOGLOBIN 29 pg (25-34); MEAN CORPUSCULAR HGB CONC 33 g/dL (32-36); MEAN CORPUSCULAR VOLUME 88 fL (80-99); MEAN PLATELET VOLUME 10.2 fL (9.0-12.2); MONOCYTES # (AUTO) 0.4 10^3/uL (0.0-1.0); MONOCYTES % (AUTO) 2 % (0-12); NEUTROPHILS # (AUTO) 18.4 10^3/uL (1.8-7.8); NEUTROPHILS % (AUTO) 92 % (42-75); PLATELET COUNT 250 10^3/uL (130-400); WHITE BLOOD COUNT 20.1 10^3/uL (4.3-11.0)
[2020-02-22 07:14] LABS: ALBUMIN 4.4 GM/DL (3.2-4.5)
[2020-02-22 07:15] LABS: CHLORIDE 104 MMOL/L (98-107); SODIUM 140 MMOL/L (135-145)
[2020-02-22 07:16] LABS: CALCIUM 9.6 MG/DL (8.5-10.1)
[2020-02-22 07:17] LABS: GLUCOSE 121 MG/DL (70-105); TOTAL PROTEIN 7.3 GM/DL (6.4-8.2)
[2020-02-22 07:18] LABS: CARBON DIOXIDE 23 MMOL/L (21-32)
[2020-02-22 07:20] LABS: ALKALINE PHOSPHATASE 88 U/L (40-136)
[2020-02-22] MEDS: ADVAIR HFA 115/21 MCG INHALER 8 GM IH SCH (07:20)
[2020-02-22 07:21] LABS: CREATININE SERUM 1.31 MG/DL (0.60-1.30); GFR ESTIMATED > 60
[2020-02-22 07:22] LABS: BUN/CREATININE RATIO 12
[2020-02-22 07:23] LABS: ALANINE AMINOTRANSFERASE 34 U/L (0-55)
[2020-02-22 07:59] VITALS: BP 122/73
[2020-02-22] MEDS: LORATADINE (CLARITIN) 10 MG TAB PO SCH (08:21)
[2020-02-22] MEDS: AZITHROMYCIN INJECTION 500 MG in NS (IVPB) 250 ML IV SCH (09:13)
[2020-02-22] MEDS ORDERED: IPRA4AER IH (12:49)
[2020-02-22] MEDS ORDERED: CEFD300C3 PO (12:49)
[2020-02-22] MEDS ORDERED: RT-ALBUINH IH (12:49)
[2020-02-22] MEDS ORDERED: FLUT12AE4 IH (12:49)
[2020-02-22] MEDS ORDERED: PRED10TA22 PO (12:49)
[2020-02-22] MEDS ORDERED: MONT10TA26 PO (12:49)
--- NOTE | 2020-02-22 12:50 | Discharge Summary ---
Discharge Summary Hospital Course Was the Problem List Reviewed?: Yes Problems/Dx: (1) Acute asthma exacerbation Status: Acute Qualifiers: Qualified Codes: J45.41 - Moderate persistent asthma with (acute) exacerbation Hospital Course Date of Admission: Feb 19, 2020 at 23:00 Admission Diagnosis : Family Physician/Provider: No,Local Physician Date of Discharge: 02/22/20 Discharge Diagnosis: status asthmaticus, bronchitis Hospital Course: Patient had a lengthy hospital course which started out as status asthmaticus but elevated lactic acid and elevated wbc led us down COVID swab path and CXR and ABG and IVF and empiric abx path. Patient resolved elevated lactic acid but not due to sepsis and PCT was only slightly above 0. IV steroids maintained and COVID swab was negative and patient was able to be DC in improved condition. Labs and Pending Lab Test: Laboratory Tests 02/22/20 06:47: White Blood Count 20.1H, Red Blood Count 5.57H, Hemoglobin 16.3, Hematocrit 49, Mean Corpuscular Volume 88, Mean Corpuscular Hemoglobin 29, Mean Corpuscular Hemoglobin Concent 33, Red Cell Distribution Width 12.4, Platelet Count 250, Mean Platelet Volume 10.2, Immature Granulocyte % (Auto) 1, Neutrophils (%) (Auto) 92H, Lymphocytes (%) (Auto) 6L, Monocytes (%) (Auto) 2, Eosinophils (%) (Auto) 0, Basophils (%) (Auto) 0, Neutrophils # (Auto) 18.4H, Lymphocytes # (Auto) 1.2, Monocytes # (Auto) 0.4, Eosinophils # (Auto) 0.0, Basophils # (Auto) 0.0, Immature Granulocyte # (Auto) 0.1, Sodium Level 140, Potassium Level 4.0, Chloride Level 104, Carbon Dioxide Level 23, Anion Gap 13, Blood Urea Nitrogen 16, Creatinine 1.31H, Estimat Glomerular Filtration Rate > 60, BUN/Creatinine Ratio 12, Glucose Level 121H, Calcium Level 9.6, Corrected Calcium 9.3, Total Bilirubin 1.0, Aspartate Amino Transf (AST/SGOT) 16, Alanine Aminotransferase (ALT/SGPT) 34, Alkaline Phosphatase 88, Total Protein 7.3, Albumin 4.4, Procalcitonin 0.02 Microbiology 02/21/20 Blood Culture - Preliminary, Resulted No growth Home Meds Active Prednisone 10 Mg Tab.ds.pk 10 Mg PO DAILY Take 6 tabs(60mg)daily,decrease by 1 tab(10MG)daily. Cefdinir 300 Mg Capsule 300 Mg PO BID Proair Hfa (Albuterol Sulfate) 1 Puff Puff 2 Puff IH Q4H 1 PUFF = 90 MCG Combivent Respimat Inhal [place] (Albuterol/Ipratropium) 4 Gm Aero 0 Gm IH RTQ4HR Montelukast Sodium 10 Mg Tablet 10 Mg PO HS Advair Hfa 115-21 Mcg Inhaler (Fluticasone/Salmeterol) 12 Gm Hfa.aer.ad 0 Puff IH RTBID Reported Prednisone 20 Mg Tab 40 Mg PO DAILY 3 Days TAKES 2 (20MG) TABS FILLED 02-19-2020 #6 Assessment/Pt Instructions VANIA Aparicio 1 week Discharge Planning: <30 minutes discharge planning Discharge Instructions Discharge Diet: No Restrictions Pneumonia Vaccine Order Indica: Yes Discharge Physical Examination Vital Signs Vital Signs Date Time Temp Pulse Resp B/P (MAP) Pulse Ox O2 Delivery O2 Flow Rate FiO2 02/22/20 08:00 Room Air 02/22/20 07:59 36.8 89 16 122/73 (89) 94 02/21/20 19:59 1.00 02/20/20 00:51 21 General Appearance: No Apparent Distress, WD/WN Respiratory: Chest Non Tender, Lungs Clear, Normal Breath Sounds, No Accessory Muscle Use, No Respiratory Distress Allergies: Coded Allergies: No Known Drug Allergies (Unverified , 06/24/19) Discharge Summary Date of Admission Feb 19, 2020 at 23:00 Date of Discharge Discharge Date: Feb 22, 2020 Admission Diagnosis Status asthmaticus Lactic acidosis Discharge Diagnosis Assessment; Status asthmaticus Swabbed for COVID Elevated lactic acid Hypoxemia on ABG Plan: IV steroids and abx HLIVF Monitor closely (1) Acute asthma exacerbation Status: Acute Qualifiers: Qualified Codes: J45.41 - Moderate persistent asthma with (acute) exacerbation Clinical Quality Measures DVT/VTE Risk/Contraindication: RFS Level Per Nursing on Admit: 0=No Risk/No VTE PPX JAYDEN WELLER DO Feb 22, 2020 12:50
--- NOTE | 2020-02-22 16:00 | NUR ---
RX AND INST AND VERBALIZED UNDERSTANDING. INFORMED OF [facility] AND BENEFITS AND SERVICES PROVIDED. DC'D PER WC WITH CLEANING ASSOCIATE TO FRONT DOOR.
== END 2020-02-22 16:00 | disposition home or self-care (01) ==
LOC: EDUNIT# 21:05 → ER FS 21:06 → 4TH 23:00
PROVIDERS: ADMIT Internal Medicine; ATTEND Internal Medicine
DX: J45.41 Moderate persistent asthma with (acute) exacerbation (principal); Z20.828 Contact with and (suspected) exposure to other viral communicable diseases
CPT/HCPCS: 36600; 80053 ×3; 82805; 83605 ×2; 84145 ×2; 85007; 85025 ×2; 85027; 87040; 94640 ×4; 94760; 99284; U0002; 36415; 87635; G0378